=== PATIENT | male | born 1990 | race Caucasian/White ===

== ENCOUNTER 2016-10-18 02:57 | Emergency (ER) ==
--- NOTE | 2016-10-18 03:27 | PROVIDER DOCUMENTATION ---
HPI-Psychological Disorder <Renan Gonzalez - Last Filed: 10/25/16 19:06> - General Source: patient, EMS <Adriano Barton - Last Filed: 11/06/16 05:44> - General Chief Complaint: Psych Stated Complaint: overdose Time Seen by Provider: 10/18/16 03:20 Allergies/Adverse Reactions: Patient Allergies Allergy/AdvReac Type Severity Reaction Status Date / Time No Known Allergies Allergy Verified 10/18/16 03:24 Home Medications: Home Medication List Medication Instructions Recorded Confirmed Last Taken Type Aripiprazole [Abilify] 12.5 mg PO QAM 30 Days 10/22/16 Unknown Rx Fluoxetine [Prozac] 10 mg PO QAM 30 Days 10/22/16 Unknown Rx Prazosin [Minipress] 1 mg PO QHS 30 Days 10/22/16 Unknown Rx Trazodone [Desyrel] 50 mg PO QHS 30 Days 10/22/16 Unknown Rx - History of Present Illness-Psych Nature of Presenting Problem: pt reports being depressed and mad over his relationship with his and daughter. He readily admits tonight that he told his he took a bunch of muscle relaxants however he states that he actually did not take these. HE did states that he tried to jump out of the moving car with his in it, and then walked to the bridge and thought about jumping but did not. He denies past problems with depression or suicide attempts. HE admits to taking marijuana daily and recently got some xanax from his uncle. (Adriano Barton) Review of Systems - Adult - REVIEW OF SYSTEMS - ADULT Constitutional: denies: chills, fever Eyes: denies: discharge, blurred vision Ears, Nose, Mouth & Throat: denies: ear pain, sinus problem, throat pain Cardiovascular: denies: chest pain, palpitations, syncope Respiratory: denies: cough, shortness of breath, wheezing Gastrointestinal: denies: abdominal pain, diarrhea, nausea, vomiting Genitourinary: denies: dysuria, frequency, flank pain Integumentary: denies: rash Neurological: denies: headache/migraines, numbness Psychiatric: reports: see HPI Endocrine: reports: no symptoms reported Hematologic/Lymphatic: reports: no symptoms reported Allergic/Immunologic: reports: no symptoms reported All Other Systems: Reviewed and Negative <Adriano Barton - Last Filed: 11/06/16 05:44> Past History - Adult - PAST MEDICAL HISTORY-ADULT Review of Records: reports: Nursing Assessment Review <Renan Gonzalez - Last Filed: 10/25/16 19:06> - PAST MEDICAL HISTORY-ADULT Review of Records: reports: Old Records Reviewed, Nursing Assessment Review, Medications Reviewed, Social history reviewed & non-contributory. Major Childhood Illnesses: reports: denies history Cardiovascular: reports: murmur, palpitations Respiratory: reports: denies history Gastrointestinal: reports: denies history Obstetrical/Gynecological: reports: denies history Genitourinary: reports: denies history Musculoskeletal: reports: denies history Neurological: reports: denies history Endocrine/Immune: reports: denies history Other Conditions: reports: denies history - PRIOR SURGERIES/PROCEDURES Surgical/Procedure History: reports: none - PRIOR HOSPITALIZATIONS Prior Hospitalizations: reports: none - IMMUNIZATION STATUS Childhood Immunizations: See Nurse Assessment Flu Vaccine: See Nurse Assessment - FAMILY HISTORY Family History: reviewed, not pertinent - SOCIAL HISTORY Substance Use: marijuana, benzodiazepines Alcohol Use Frequency: occasionally Living Situation: family <Adriano Barton - Last Filed: 11/06/16 05:44> Physical Exam-Psych Focus - Physical Exam-Psych Initial Vital Signs Reviewed: Yes <Renan Gonzalez - Last Filed: 10/25/16 19:06> - Physical Exam-Psych Initial Vital Signs Reviewed: Yes Appearance: appropriate appearance, appropriate insight, neat, no apparent distress, no memory impairment, denies illness, alert Neurological: alert, normal mood/affect, calm, 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 negative: lymphadenopathy, meningismus Respiratory: chest non-tender, lungs clear, normal breath sounds, no pleuratic chest pain, no respiratory distress, no accessory muscle use Cardiovascular: regular rate, rhythm, no edema, no murmur Abdominal Exam: normal bowel sounds, non tender, soft, no organomegaly, no pulsatile mass Back Exam: normal inspection, no CVA tenderness, no vertebral tenderness Extremity: normal range of motion, non-tender, normal gait, normal inspection, no pedal edema, no calf tenderness Integumentary: normal color, normal turgor, warm/dry <Adriano Barton - Last Filed: 11/06/16 05:44> Progress <Renan Gonzalez - Last Filed: 10/25/16 19:06> - EKG 1 Time of EKG reading by physician:: 04:54 EKG Interpretation (*Must complete 3 of following elements*): Normal Rate: 64 Rhythm: sinus [place]: normal QRS: normal OK Interval: normal ST Wave: normal Prior EKG Comparison: no prior EKG - CHANGE OF SHIFT REPORT (ED Provider) Report Given and Care Transferred to:: Dr Gonzalez Time of Transfer: 06:00 Items Pending: Other (psych placement) <Adriano Barton - Last Filed: 11/06/16 05:44> - PLAN OF CARE/RESULTS Progress/Plan/Lab Results: 0645 Accepted care of patient from DR Barton at 0600. Pt has expressed suicidal ideations and was threatening to leave the department. Police are at the bedside and a psychiatric hold has been placed on the patient through Saturday. The patient was continuing to threaten to leave despite the presence of police. IM Geodon and Ativan have been ordered in the hopes of making him more manageable while awaiting placement. (Renan Gonzalez) Departure - Departure Time of Disposition Order: 08:00 <Renan Gonzalez - Last Filed: 10/25/16 19:06> - Departure Time of Disposition Order: 05:44 Certified Medical Emergency: Emergent <Adriano Barton - Last Filed: 11/06/16 05:44> - Departure DIAGNOSIS: Suicidal ideation Disposition: [facility] Condition: Stable Referrals: None,PCP [Primary Care Provider] - Physician Attestation
[2016-10-18 03:36] LABS: MANUAL DIFF NEEDED? NO
[2016-10-18 03:41] LABS: BASO% 0.3 % (0.0-0.8); EOS# 0.15 X1000 (0.0-0.7); EOS% 1.7 % (0.0-10.0); HEMATOCRIT 40.6 % (42.0-52.0); HEMOGLOBIN 13.9 g/dL (14.0-18.0); IMM GRAN# 0.02 X1000 (0.0-0.04); IMM GRAN% 0.2 % (0.0-0.5); LYMPH# 1.61 X1000 (1.2-3.4); MCH 29.8 PG (27-31); MCHC 34.2 g/dL (33-37); MCV 86.9 FL (81-99); MONO# 0.67 X1000 (0.11-0.59); MONO% 7.5 % (1.7-9.3); MPV 10.7 FL (7.4-10.4); NEUT% 72.3 % (42.2-75.2); PLT 206 X1000 (130-400); RBC 4.67 XMIL (4.7-6.1)
[2016-10-18 04:03] LABS: ACETAMINOPHEN < 1.2 ug/mL (10-30); AGAP 13; ALBUMIN 3.9 g/dL (3.5-5.0); ALKALINE PHOSPHATASE 65 U/L (32-122); BUN 12 mg/dL (8-22); CALCIUM 8.7 mg/dL (8.8-10.2); CHLORIDE 103 mmol/L (98-107); COSMO 279; GOT 14 U/L (10-34); GPT 17 U/L (10-44); POTASSIUM 3.8 mmol/L (3.5-5.1); SODIUM 140 mmol/L (136-145); TCO2 24 mmol/L (25-35); TOTAL BILIRUBIN 0.45 mg/dL (0.20-1.00); TOTAL PROTEIN 6.5 g/dL (6.3-8.3)
[2016-10-18 04:14] LABS: URINE CULTURE NEEDED? NO; URINE MICRO REVIEW NEEDED? NO; URINE SOURCE CLEAN CATCH
[2016-10-18 04:21] LABS: FREE T4 1.13 ng/dL (0.93-1.70)
[2016-10-18 04:22] LABS: BILIRUBIN URINE NEGATIVE (NEGATIVE); BLOOD URINE NEGATIVE (NEGATIVE); COLOR YELLOW; GLUCOSE URINE NEGATIVE (NEGATIVE); LEUKOCYTES URINE NEGATIVE (NEGATIVE); NITRITE URINE NEGATIVE (NEGATIVE); PH URINE 6.5; PROTEIN URINE NEGATIVE (NEGATIVE); SP GRAVITY URINE 1.022; TURBIDITY URINE CLEAR (CLEAR); UROBILINOGEN URINE NORMAL (NORMAL)
[2016-10-18 04:24] LABS: UR EPITHELIAL CELLS <10 /HPF (<10); URINE BACTERIA NEGATIVE /HPF; URINE RBC <10 /HPF (<10); URINE WBC <10 /HPF (<10)
[2016-10-18 04:58] LABS: UR AMPHETAMINES QUAL NONE DETECTED (NONE DETECT); UR BARBITUATES QUAL NONE DETECTED (NONE DETECT); UR BENZODIAZEPIN QUAL PRESUMPTIVE POSITIVE (NONE DETECT); UR CANNABINOIDS QUAL PRESUMPTIVE POSITIVE (NONE DETECT); UR COCAINE QUAL NONE DETECTED (NONE DETECT); UR METHADONE QUAL NONE DETECTED (NONE DETECT); UR OPIATES QUAL NONE DETECTED (NONE DETECT); UR OXYCODONE QUAL NONE DETECTED (NONE DETECT); UR PCP QUAL NONE DETECTED (NONE DETECT)
--- NOTE | 2016-10-18 05:47 | EKG Report ---
Test Performed on : 10/18/2016 04:36:18 AM Test Reason : PSYCH Blood Pressure : / mmHG Vent. Rate : 064 BPM Atrial Rate : 064 BPM P-R Int : 142 ms QRS Dur : 110 ms QT Int : 384 ms P-R-T Axes : 022 036 044 degrees QTc Int : 396 ms Normal sinus rhythm. Normal ECG No previous ECGs available Unconfirmed Result
[2016-10-18] MEDS ORDERED: STERILE WATER INJ. INJ ONE (06:26)
[2016-10-18] MEDS ORDERED: ATIVAN IM ONE (06:26)
[2016-10-18] MEDS ORDERED: GEODON IM ONE (06:26)
[2016-10-18 08:15] VITALS: BP 130/70
== END 2016-10-18 08:13 ==
LOC: EDBD → SUPCPDRO 02:57 → ED 02:57
DX: R45.851 Suicidal ideations (principal); F32.9 Major depressive disorder, single episode, unspecified; Z79.899 Other long term (current) drug therapy
CPT/HCPCS: 36415; 80053; 81001; 82607; 84439; 84443; 85025; 93005; 96372; G0480; J2060; J3486; 80320; 80324; 80329; 80345; 80346; 80349; 80353; 80358; 80361; 80365; 83992